=== PATIENT | female | born 1960 | race Caucasian/White ===

== ENCOUNTER 2019-08-20 06:35 | Emergency (ER) | payer MEDICAID ==
[~2019-08-20] VITALS: Ht 152.4 cm; Wt 54.4 kg
[~2019-08-20 06:35] MED LIST: ALBU8.5H8 INH; CEPH-443 PO; PRED20TA PO
[2019-08-20 06:41] VITALS: Ht 152.4 cm; Wt 54.4 kg
[2019-08-20] MEDS ORDERED: ALBUTEROL 0.5% (NEB) 2.5 MG/0.5 ML AMP INH STA (06:54)
[2019-08-20] MEDS ORDERED: METHYLPREDNISOLONE 125 MG INJ IV STA (06:54)
[2019-08-20] MEDS ORDERED: IPRATROPIUM (NEB) 0.5 MG/2.5 ML AMP INH STA (06:54)
[2019-08-20] MEDS ORDERED: predniSONE 20 MG TAB PO ONE (08:00)
[2019-08-20] MEDS ORDERED: CEFTRIAXONE 1 GM INJ IM ONE (08:30)
[2019-08-20] MEDS ORDERED: LIDOCAINE 1% (MDV) 20 ML INJ SC ONE (08:30)
[2019-08-20] MEDS ORDERED: CEFTRIAXONE 1 GM/50 ML (PMX) 50 ML IVPB ONE (08:30)
[2019-08-20 08:59] VITALS: BP 116/87; PULSE 73; RESP 18
== END 2019-08-20 09:27 | disposition home or self-care (01) ==
LOC: E/R 06:35
DX: J44.1 Chronic obstructive pulmonary disease with (acute) exacerbation (principal); N39.0 Urinary tract infection, site not specified; Z85.41 Personal history of malignant neoplasm of cervix uteri; Z87.891 Personal history of nicotine dependence
CPT/HCPCS: 71045; 80053; 81001; 83690; 83880; 84484; 85025; 85378; 87400; 93005; 94644; 96372; J0696; J2930; J7512; Z7502; Z7610